=== PATIENT | male | born 1970 | race Caucasian/White ===

== ENCOUNTER 2025-01-09 16:41 | Emergency (ER) | payer OTHER, SELFPAY ==
[2025-01-09 16:43] VITALS: BP 154/94
--- NOTE | 2025-01-09 19:29 | ED.GENMED ---
History of Present Illness
General
Chief Complaint: Dental Problem
Source: patient
Time Seen by Provider: 01/09/25 19:19
History of Present Illness
History of Present Illness:
54-year-old male presents to the emergency room complaining of dental pain. Patient states he had going to [facility] today to have his dental pain evaluated. He did not have enough cabrera for them so they were unable to help him and sent him to
the emergency room. Patient states he has been having dental pain for the past several months. Nothing is really changed today. No fever or chills.
Past History
Past History
ED Past Medical History: Other (Asbestos exposure); Negative Asthma, CAD or CHF
ED Past Surgical History: None
Social History
Personal:
Living: with family
Employment: Not employed
Phy Exam
Physical Exam
Physical Exam:
General: Awake, Alert, Oriented X3. No acute distress.
Vitals: unremarkable
Head: Atraumatic
Eyes: Pupils equal, EOMI
Mouth: Poor dentition, caries and cracked teeth noted but no abscess or purulent discharge
Throat: Airway intact, no exudates
Neck: Trachea midline
Lungs: Clear and equal b/l
Heart: Regular rate, no murmurs
Neuro: Nonfocal
Skin: Warm, dry, no rash
Extremities: pulses equal b/l, no edema
Course
Orders/Labs/Results
Orders:
Orders
01/09/25 19:28
Ibuprofen [Motrin] 600 mg PO NOW STA
Penicillin V Potassium [Pen Vk] 500 mg PO NOW STA
Vital Signs
Initial and Last Documented VS:
Initial Vital Signs
Temp Pulse Resp BP Pulse Ox
97.9 F 78 17 154/94 98
01/09/25 16:43 01/09/25 16:43 01/09/25 16:43 01/09/25 16:43 01/09/25 16:43
Last Documented Vital Signs
Temp Pulse Resp BP Pulse Ox
97.9 F 75 18 155/90 99
01/09/25 16:43 01/09/25 19:38 01/09/25 19:38 01/09/25 19:38 01/09/25 19:38
MDM/Problems Addressed
Differential Diagnosis Includes:
Periapical abscess, gingivitis, nonspecific dental pain
MDM/Problems Addressed:
Patient presents with dental pain. There is no evidence of an unstable process. Will treat with penicillin and NSAIDs.
*Pulse Oximetry
Patient hypoxic: no
*Critical Care Note
Total Time (30-74mins, 75-104mins- exclusive of procedures): Not Applicable
ED Attending Note
-
Portions of this chart may have been created with voice recognition software.� Occasional wrong word or��sound alike� substitutions may have occurred due to the inherent limitations of voice recognition software.
Discharge Plan
Departure
Patient Disposition: Home (Routine Discharge)
Date of Disposition: 01/09/25
Time of Disposition: 19:29
Patient with high blood pressure during this ER visit?: Yes
Condition: Good
Discharge Problem:
Pain, dental
Instructions: Dental Pain (DC), BLOOD PRESSURE
Prescriptions:
New
ibuprofen 600 mg tablet
600 mg PO Q6H PRN (Reason: Pain) Qty: 20 0RF
penicillin V potassium 500 mg tablet
500 mg PO TID Qty: 21 0RF
No Action
multivitamin with folic acid [Tab-A-Avni] 1 TABLET tablet
1 tab PO DAILY
Klonopin:
PO DAILY
OMEGA-3
PO DAILY
Sparta's Wort
PO DAILY
Referrals:
DAJUAN RANGEL [Other]
Activity Restrictions/Additional Instructions:
I would recommend calling Dr. Parra to see if he can help with your dental issues. He is located [address] [place] [address], [place]. [phone]
Interventions
Interventions:
*Risk Screen - Suicide Last Done: 01/09/25 16:43
*General Assessment Last Done: 01/09/25 18:35
*Neglect/Abuse Screening Last Done: 01/09/25 16:43
*ED- Fall Risk Assessment Last Done: 01/09/25 18:35
*ED COVID-19 Vaccine History Last Done: 01/09/25 18:35
*Nursing Disposition Last Done: 01/09/25 19:41
Discharge Date and Time
Discharge Date/Time: 01/09/25 19:42
Print Language: MALAGASY
[2025-01-09] MEDS: PEN VK 500 MG PO (19:37)
[2025-01-09] MEDS: MOTRIN 600 MG PO (19:37)
[2025-01-09 19:38] VITALS: BP 155/90
== END 2025-01-09 19:42 | disposition home or self-care (01) ==
LOC: EMR 16:41
PROVIDERS: EMERGENCY PHYSICIAN Emergency Medicine
DX: K08.89 Other specified disorders of teeth and supporting structures (principal); K03.81 Cracked tooth; K02.9 Dental caries, unspecified; R03.0 Elevated blood-pressure reading, without diagnosis of hypertension
CPT/HCPCS: 99283